=== PATIENT | male | born 1940 | race Caucasian/White ===

== ENCOUNTER 2016-06-13 19:18 | Emergency (ER) | payer OTHER ==
--- NOTE | 2016-06-13 19:34 | CPEKG ---
Heart Rate: 80 RR Interval: 750 QRSD Interval: 142 QT Interval: 416 QTC Interval: 480 QRS [place]: 4 T Wave [place]: 152 EKG Severity - ABNORMAL ECG - EKG Impression: ATRIAL FIBRILLATION, V-RATE 57-109 EKG Impression: LEFT BUNDLE BRANCH BLOCK Electronically Signed By: Henry Phelps 13-Jun-2016 23:17:32
[2016-06-13] MEDS ORDERED: NITROGLYCERIN 0.4 MG BTL SL ONE (19:44)
[2016-06-13] MEDS ORDERED: ASPIRIN 81 MG CHEWABLE TAB PO ONE (19:45)
--- NOTE | 2016-06-13 19:50 | UCPHY ---
H & P Patient Type: Established Chief Complaint Nursing Narrative: R shoulder pain without injury, chest pain, SOB, and high BP (SBP 170's) x 2 hours. Reports chest congestion x 2 weeks. Time Seen by Provider: 06/13/16 19:36 HPI/ROS: This patient presents with chest pain described as epigastric and right shoulder location pressure an ache in nature, 4/10 intensity that started this evening while at rest approximately at 4:00 p.m.. The patient has not had this discomfort before. He took 3 baby aspirin and came in for evaluation. He has associated dyspnea. He notes no exacerbating factors for his symptoms. He has no other associated symptoms felt well prior to the onset of the symptoms. ROS: No fevers or chills prior to this. He has had cold symptoms with cough recently. He denies any dyspnea prior to the onset of the chest pain. He reports no recent shoulder injuries or other musculoskeletal complaints. HEENT: No complaints pulmonary: No pleuritic pain. Cardiovascular: He did notice any significant heart palpitations. No lightheadedness. No diaphoresis. No lower extremity swelling. GI: No abdominal pain. : No complaints. Neuro: No complaints. Patient has noted recent hypertension. He takes his atenolol and lisinopril at night reports compliance with his medications recently. Source: Patient Exam Limitations: No limitations - Personal History Current Tetanus Diphtheria and Acellular Pertussis (TDAP): Yes Tetanus Vaccine Date: within 10 years - Medical/Surgical History PMH: Patient has a known history of hypertension and atrial fibrillation on Coumadin. No prior history of known coronary artery disease. He denies ever having a cardiac catheterization. Prediabetic. Hx Asthma: No Hx Chronic Respiratory Disease: No Hx Diabetes: No Hx Cardiac Disease: No Hx Renal Disease: No Hx Cirrhosis: No Hx Alcoholism: No Hx HIV/AIDS: No Hx Splenectomy or Spleen Trauma: No Other PMH: htn/afib, RENE, pre diabetic - Family History Significant Family History: No pertinent family hx - Social History Smoking Status: Former smoker Alcohol Use: Occasionally Drug Use: None - Physical Exam Exam: General Appearance: Alert, no distress. Eyes: Pupils equal and round no pallor or injection. ENT, Mouth: Mucous membranes moist. Respiratory: There are no retractions, lungs are clear to auscultation. Cardiovascular: Irregularly irregular with no murmur gallop or rub. No JVD. No peripheral edema. Gastrointestinal: Patient has mild epigastric tenderness the partially reproduces symptoms. Neurological: Alert with no focal deficits. Skin: Warm and dry, no rashes. Musculoskeletal: Neck is supple nontender. Extremities are symmetrical, full range of motion. Psychiatric: Mood and affect normal DIFFERENTIAL DIAGNOSIS: After history and physical exam differential diagnosis was considered for acute MA , gastritis, musculoskeletal shoulder pain, hypertensive emergency with cardiac symptoms, pneumonia, bronchitis, GERD Constitutional: Initial Vital Signs Temperature (C) 36.6 C 06/13/16 19:23 Heart Rate 83 06/13/16 19:23 Respiratory Rate 18 06/13/16 19:23 Blood Pressure 163/114 H 06/13/16 19:23 O2 Sat (%) 93 06/13/16 19:23 O2 Delivery Mode Room Air Allergies/Adverse Reactions: No Known Allergies Allergy (Verified 06/13/16 19:34) Home Medications: Medication Instructions Recorded Coumadin 2.5MG (RX) 08/23/13 Simvastatin 08/23/13 Atenolol 06/13/16 Lisinopril 06/13/16 Metformin HCl 06/13/16 Medical Decision Making ED Course/Re-evaluation: Final baby aspirin to complete 4 baby aspirins was given. Initial IV start was miss 2nd IV established 1 supple nitroglycerin given Because we do not have any prior EKGs in this patient does not recognize at ever having a left bundle branch block cannot rule out acute MA in this patient in the setting of chest pain with left bundle-branch block an EKG. Due to this we called EMS for emergent transport to [facility] Spoke with Dr. Hernandez, accepting emergency physician at [facility] Report is given to the firemen he transport this patient to [facility] at 7:55 p.m. Departure - Departure Disposition: Acute Care Hospital Not [facility] Clinical Impression: Left bundle branch block Condition: Serious - PQRS PQRS Measurement: 134: Depression screening and followup, PRIME MD-PHQ2 (12 years and older) Over the last 2 weeks, how often have you been bothered by any of the following problems? 1. Feeling down, depressed, or hopeless? 2. Little interest or pleasure in doing things? Patient answered no to both 1 and 2 130: Documentation of medications. Reviewed all patient medications, doses, route and frequency. 226: Do you smoke? [No.] 47: 65 and older: Advanced care planning. Patient designates surrogate decision maker as spouse 51: 18 years old and older with diagnosis of COPD, spirometry performance. NA 52: 18 years old and older with COPD and symptoms of COPD or FEV1<60% predicted prescribed a B Agonist. NA
[2016-06-13 19:58] LABS: % IMMATURE GRANULYOCYTES 0.3 % (0.0-1.1); ABSOLUTE IMMATURE GRANULOCYTES 0.03 10^3/uL (0.00-0.10); ADD DIFF? NO; ADD MORPH? NO; ADD SCAN? NO; ATYPICAL LYMPHOCYTE FLAG 0 (0-99); FRAGMENT RBC FLAG 0 (0-99); HEMOGLOBIN 14.2 g/dL (13.7-17.5); LEFT SHIFT FLG 0 (0-99); LIPEMIA HEMOLYSIS FLAG 90 (0-99); MEAN CELL HEMOGLOBIN 31.4 pg (27.9-34.1); MEAN CELL HEMOGLOBIN CONCENTR. 33.8 g/dL (32.4-36.7); MEAN CELL VOLUME 92.9 fL (81.5-99.8); MEAN PLATELET VOLUME 11.8 fL (8.7-11.7); PLATELET CLUMPS FLAG 0 (0-99); PLATELET COUNT 134 10^3/uL (150-400); RED BLOOD CELL COUNT 4.52 10^6/uL (4.40-6.38); RED CELL DISTRIBUTION WIDTH 13.2 % (11.5-15.2)
[2016-06-13 20:06] LABS: INR 1.71 (0.83-1.16); PROTIME(PATIENT) 19.8 SEC (12.0-15.0)
[2016-06-13 20:07] LABS: APTT 33.7 SEC (23.0-38.0)
[2016-06-13 20:15] LABS: ALANINE AMINOTRANSFERASE 24 IU/L (21-72); ALBUMIN 3.8 g/dL (3.5-5.0); ALKALINE PHOSPHATASE 71 IU/L (38-126); ANION GAP 15 mEq/L (8-16); ASPARTATE AMINOTRANSFERASE 20 IU/L (17-59); BILIRUBIN,TOTAL 1.2 mg/dL (0.1-1.4); CALCIUM 8.7 mg/dL (8.5-10.4); CARBON DIOXIDE 26 mEq/l (22-31); CHLORIDE 99 mEq/L (97-110); CREATININE 0.9 mg/dL (0.7-1.3); GLOMERULAR FILTRATION RATE > 60; GLUCOSE 152 mg/dL (70-100); POTASSIUM 4.3 mEq/L (3.5-5.2); SODIUM 140 mEq/L (134-144); TOTAL PROTEIN 6.7 g/dL (6.3-8.2)
[2016-06-13 20:20] LABS: TROPONIN I < 0.012 ng/mL (0-0.034)
[2016-06-13 21:50] VITALS: BP 165/105; PULSE 79; RESP 16; TEMP 98.2; O2SAT 96
== END 2016-06-13 19:57 | disposition short-term general hospital (02) ==
LOC: CED 19:18
DX: I44.7 Left bundle-branch block, unspecified (principal); I10 Essential (primary) hypertension; I48.91 Unspecified atrial fibrillation; G47.33 Obstructive sleep apnea (adult) (pediatric); R73.03 Prediabetes; Z79.01 Long term (current) use of anticoagulants
CPT/HCPCS: 93005; G0463; 80053-PO; 84484-PO; 85025-PO; 85610-PO; 85730-PO; 99215-PO

== ENCOUNTER → 2017-03-03 | Outpatient (CLI) | payer OTHER | LOC: CIMAGING 09:14 | PROVIDERS: ATTEND Internal Medicine | DX: M25.571 Pain in right ankle and joints of right foot (principal); E78.5 Hyperlipidemia, unspecified; I48.91 Unspecified atrial fibrillation; E11.9 Type 2 diabetes mellitus without complications; M76.60 Achilles tendinitis, unspecified leg | CPT/HCPCS: 73600-PO ==